=== PATIENT | female | born 1985 | race Caucasian/White ===

== ENCOUNTER → 2018-04-28 | Outpatient (CLI) | payer OTHER ==
[~2018-04-28] MED LIST: ALBU90OI61; Cyclobenzaprine5 MG PO; Flovent 110 MCG12 GM INH; KETO10 PO; PRAZ1 PO; Prednisone20 MG PO; TRAZ50 PO
[2018-04-28 18:03] LABS: BASOPHILS ABSOLUTE AUTO 0.06 K/mm3 (0.00-0.23); BASOPHILS PERCENT AUTO 1 % (0-2); EOSINOPHILS ABSOLUTE AUTO 0.57 K/mm3 (0.00-0.68); EOSINOPHILS PERCENT AUTO 11 % (0-6); Hematocrit 43.6 % (33.0-51.0); Hemoglobin 13.7 g/dL (11.5-16.0); IMMATURE GRAN PERCENT AUTO 0 % (0-1); LYMPHOCYTES ABSOLUTE AUTO 1.49 K/mm3 (0.84-5.20); LYMPHOCYTES PERCENT AUTO 30 % (21-46); MONOCYTES ABSOLUTE AUTO 0.38 K/mm3 (0.16-1.47); MONOCYTES PERCENT AUTO 8 % (4-13); Mean Corpuscular HGB 28.1 pg (26.0-34.0); Mean Corpuscular HGB Conc 31.4 g/dL (31.5-36.5); Mean Corpuscular Volume 89 fL (80-100); Mean Platelet Volume 10.5 fL (9.1-12.4); NEUTROPHILS ABSOLUTE AUTO 2.52 K/mm3 (1.96-9.15); NEUTROPHILS PERCENT AUTO 50 % (41-73); Platelet Count 209 K/mm3 (150-400); RDW Standard Deviation 38.9 fL (35.1-46.3); Red Blood Cell Count 4.88 M/mm3 (3.80-5.20); White Blood Cell Count 5.02 K/mm3 (4.00-11.30)
[2018-04-28 18:21] LABS: Alanine Aminotransfer (ALT/SGP 20 U/L (12-78); Albumin, Blood 3.8 g/dL (3.4-5.0); Albumin/Globulin Ratio 1.1 (0.8-1.8); Alk Phos 45 U/L (50-136); Anion Gap 6 mmol/L (6-16); Aspartate Aminotrans (AST/SGOT 13 U/L (12-37); Bilirubin, Total 0.4 mg/dL (0.1-1.0); Blood Urea Nitrogen 11 mg/dL (8-24); Bun/Creatinine Ratio 14.5 (12.0-20.0); CO2, Blood 25 mmol/L (21-32); Calcium, Blood 8.5 mg/dL (8.5-10.1); Chloride, Blood 109 mmol/L (98-108); Creatinine, Blood 0.76 mg/dL (0.40-1.00); Globulin, Blood 3.4 g/dL (2.2-4.0); Glomerular Filtration Rate >60 (60-); Glucose, Blood 94 mg/dL (70-99); Sodium, Blood 140 mmol/L (136-145); Total Protein, Blood 7.2 g/dL (6.4-8.2)
== END ==
LOC: LAB SHORT 15:47 → LAB 15:47
PROVIDERS: Family Medicine
DX: R53.83 Other fatigue (principal)
CPT/HCPCS: 36415; 80053; 82607; 82746; 84443; 85025

== ENCOUNTER → 2018-05-02 | Outpatient (CLI) | payer OTHER | LOC: LAB 14:18 → LAB SHORT 14:18 | DX: R19.7 Diarrhea, unspecified (principal) | CPT/HCPCS: 87177; 87209 ==

== ENCOUNTER 2018-06-04 13:53 | Emergency (ER) | payer OTHER ==
[~2018-06-04] VITALS: Ht 167.6 cm; Wt 63.5 kg
[2018-06-04 16:29] LABS: BASOPHILS ABSOLUTE AUTO 0.09 K/mm3 (0.00-0.23); BASOPHILS PERCENT AUTO 1 % (0-2); EOSINOPHILS ABSOLUTE AUTO 1.37 K/mm3 (0.00-0.68); EOSINOPHILS PERCENT AUTO 14 % (0-6); Hematocrit 48.4 % (33.0-51.0); Hemoglobin 15.4 g/dL (11.5-16.0); IMMATURE GRAN ABSOLUTE AUTO 0.03 K/mm3 (0.00-0.10); IMMATURE GRAN PERCENT AUTO 0 % (0-1); LYMPHOCYTES ABSOLUTE AUTO 1.86 K/mm3 (0.84-5.20); LYMPHOCYTES PERCENT AUTO 19 % (21-46); MONOCYTES ABSOLUTE AUTO 0.65 K/mm3 (0.16-1.47); MONOCYTES PERCENT AUTO 7 % (4-13); Mean Corpuscular HGB 28.7 pg (26.0-34.0); Mean Corpuscular HGB Conc 31.8 g/dL (31.5-36.5); Mean Platelet Volume 9.7 fL (9.1-12.4); NEUTROPHILS ABSOLUTE AUTO 6.04 K/mm3 (1.96-9.15); NEUTROPHILS PERCENT AUTO 60 % (41-73); Platelet Count 247 K/mm3 (150-400); RDW Coefficient Variation 12.7 % (11.7-14.2); RDW Standard Deviation 41.8 fL (35.1-46.3); Red Blood Cell Count 5.37 M/mm3 (3.80-5.20); White Blood Cell Count 10.04 K/mm3 (4.00-11.30)
[2018-06-04 16:32] LABS: Mean Corpuscular Volume 90 fL (80-100)
[2018-06-04 16:41] LABS: Alanine Aminotransfer (ALT/SGP 26 U/L (12-78); Albumin, Blood 4.1 g/dL (3.4-5.0); Albumin/Globulin Ratio 1.2 (0.8-1.8); Alk Phos 50 U/L (50-136); Anion Gap 6 mmol/L (6-16); Aspartate Aminotrans (AST/SGOT 18 U/L (12-37); Bilirubin, Total 0.5 mg/dL (0.1-1.0); Blood Urea Nitrogen 8 mg/dL (8-24); Bun/Creatinine Ratio 11.4 (12.0-20.0); CO2, Blood 25 mmol/L (21-32); Calcium, Blood 8.7 mg/dL (8.5-10.1); Chloride, Blood 110 mmol/L (98-108); Globulin, Blood 3.5 g/dL (2.2-4.0); Glomerular Filtration Rate >60 (60-); Glucose, Blood 80 mg/dL (70-99); Potassium, Blood 4.2 mmol/L (3.5-5.5); Sodium, Blood 141 mmol/L (136-145); Total Protein, Blood 7.6 g/dL (6.4-8.2)
[2018-06-04] MEDS ORDERED: Flovent Disku100 MCG INH (18:50)
== END 2018-06-04 19:09 | disposition home or self-care (01) ==
LOC: ER 13:53
PROVIDERS: Physician Assistant
DX: J45.901 Unspecified asthma with (acute) exacerbation (principal); F32.9 Major depressive disorder, single episode, unspecified; Z79.899 Other long term (current) drug therapy; Z88.0 Allergy status to penicillin; Z88.2 Allergy status to sulfonamides
CPT/HCPCS: 36415; 71046; 80053; 85025; 94640; 94644; 96365; 96375; 99284-25; J2930; J3475; J7030

== ENCOUNTER 2018-08-26 18:18 | Inpatient (IN) | payer OTHER ==
[~2018-08-26] VITALS: Ht 167.6 cm; Wt 62.6 kg
[~2018-08-26 18:18] MED LIST changes: +Flovent Disku100 MCG INH
[2018-08-26 20:20] LABS: Base Excess Venous 0.9 mmol/L; PCO2 Venous 40.7 mmHg (38-42); PO2 Venous 75.6 mmHg (38-42); pH Blood Venous 7.41 (7.34-7.37)
[2018-08-26 20:32] LABS: Anion Gap 7 mmol/L (6-16); Blood Urea Nitrogen 10 mg/dL (8-24); CO2, Blood 26 mmol/L (21-32); Calcium, Blood 8.8 mg/dL (8.5-10.1); Chloride, Blood 108 mmol/L (98-108); Creatinine, Blood 0.77 mg/dL (0.40-1.00); Glomerular Filtration Rate >60 (60-); Glucose, Blood 74 mg/dL (70-99); Potassium, Blood 3.6 mmol/L (3.5-5.5); Sodium, Blood 141 mmol/L (136-145)
[2018-08-27] MEDS ORDERED: HYDHCL25 PO (00:31)
[2018-08-27 05:22] LABS: Adenovirus Not Detected (NOT DETECT); Bordetella pertussis Not Detected (NOT DETECT); Chlamydophila pneumoniae Not Detected (NOT DETECT); Coronavirus 229E Not Detected (NOT DETECT); Coronavirus HKU1 Not Detected (NOT DETECT); Coronavirus NL63 Not Detected (NOT DETECT); Coronavirus OC43 Not Detected (NOT DETECT); Human Metapneumovirus Not Detected (NOT DETECT); Human Rhinovirus/Enterovirus Not Detected (NOT DETECT); Influenza A Not Detected (NOT DETECT); Influenza A/2009-H1 Not Detected (NOT DETECT); Influenza A/H1 Not Detected (NOT DETECT); Influenza A/H3 Not Detected (NOT DETECT); Influenza B Not Detected (NOT DETECT); Mycoplasma pneumoniae Not Detected (NOT DETECT); Parainfluenza Virus 1 Not Detected (NOT DETECT); Parainfluenza Virus 2 Not Detected (NOT DETECT); Parainfluenza Virus 3 Not Detected (NOT DETECT); Parainfluenza Virus 4 Not Detected (NOT DETECT); Respiratory Syncytial Virus Not Detected (NOT DETECT)
[2018-08-27 08:12] LABS: Mean Corpuscular HGB 28.6 pg (26.0-34.0); Mean Corpuscular HGB Conc 32.6 g/dL (31.5-36.5); Mean Corpuscular Volume 88 fL (80-100); Mean Platelet Volume 10.3 fL (9.1-12.4); Platelet Count 213 K/mm3 (150-400); RDW Coefficient Variation 12.2 % (11.7-14.2); RDW Standard Deviation 39.4 fL (35.1-46.3); White Blood Cell Count 4.53 K/mm3 (4.00-11.30)
[2018-08-27 08:25] LABS: Alanine Aminotransfer (ALT/SGP 19 U/L (12-78); Albumin, Blood 3.7 g/dL (3.4-5.0); Albumin/Globulin Ratio 1.1 (0.8-1.8); Alk Phos 48 U/L (50-136); Anion Gap 8 mmol/L (6-16); Aspartate Aminotrans (AST/SGOT 11 U/L (12-37); Bilirubin, Total 0.4 mg/dL (0.1-1.0); Blood Urea Nitrogen 12 mg/dL (8-24); Bun/Creatinine Ratio 18.3 (12.0-20.0); CO2, Blood 21 mmol/L (21-32); Calcium, Blood 8.6 mg/dL (8.5-10.1); Chloride, Blood 112 mmol/L (98-108); Creatinine, Blood 0.66 mg/dL (0.40-1.00); Globulin, Blood 3.4 g/dL (2.2-4.0); Glomerular Filtration Rate >60 (60-); Glucose, Blood 131 mg/dL (70-99); Potassium, Blood 4.3 mmol/L (3.5-5.5); Sodium, Blood 141 mmol/L (136-145); Total Protein, Blood 7.1 g/dL (6.4-8.2)
[2018-08-27 10:33] LABS: Source, Urine Clean Catch
[2018-08-27 10:36] LABS: Bilirubin, Urine Neg (Neg); Blood, Urine Neg (Neg); Glucose Qualitative, Urine Neg (Neg); Ketones, Urine 3+ (Neg); Leukocyte Esterase, Urine Neg (Neg); Nitrite, Urine Neg (Neg); Protein, Urine Neg (Neg); Specific Gravity, Urine 1.015 (1.003-1.022); Urobilinogen, Urine NORM (Normal); pH, Urine 6.5 (5.0-8.0)
[2018-08-27 10:37] LABS: Appearance, Urine Clear (Clear); Color, Urine Yellow (P-Yellow)
--- NOTE | 2018-08-27 18:05 | NUR ---
SHIFT SUMMARY PT A&OX4. ANXIOUS AT TIMES. PT RESTING IN BED DURING SHIFT. PT UP IN ROOM IND. DENIES SOB, >95% ON RA, LS EXP/INS WHEEZING T/O. PT RECEIVING BREATHING TREATMENTS PER RT AND IV STEROIDS. PT REPORTS MUSCLE TIGHTNESS, MEDICATED X1 WITH FLEXERIL. PT DENIES N/V. ELEVATED HR NOTED, OTHER VSS. NO OTHER ACUTE CHANGES NOTED DURING SHIFT. WILL CONTINUE TO MONITOR UNTIL REPORT GIVEN TO ONCOMING RN.
[2018-08-28 04:50] LABS: BASOPHILS ABSOLUTE AUTO 0.01 K/mm3 (0.00-0.23); BASOPHILS PERCENT AUTO 0 % (0-2); EOSINOPHILS PERCENT AUTO 0 % (0-6); Hematocrit 41.3 % (33.0-51.0); Hemoglobin 13.2 g/dL (11.5-16.0); IMMATURE GRAN ABSOLUTE AUTO 0.05 K/mm3 (0.00-0.10); IMMATURE GRAN PERCENT AUTO 0 % (0-1); LYMPHOCYTES PERCENT AUTO 5 % (21-46); MONOCYTES ABSOLUTE AUTO 0.24 K/mm3 (0.16-1.47); MONOCYTES PERCENT AUTO 2 % (4-13); Mean Corpuscular HGB 28.9 pg (26.0-34.0); Mean Corpuscular Volume 90 fL (80-100); Mean Platelet Volume 10.8 fL (9.1-12.4); NEUTROPHILS ABSOLUTE AUTO 10.76 K/mm3 (1.96-9.15); NEUTROPHILS PERCENT AUTO 92 % (41-73); Platelet Count 214 K/mm3 (150-400); RDW Coefficient Variation 12.4 % (11.7-14.2); RDW Standard Deviation 40.6 fL (35.1-46.3); Red Blood Cell Count 4.57 M/mm3 (3.80-5.20); White Blood Cell Count 11.66 K/mm3 (4.00-11.30)
[2018-08-28 05:10] LABS: Albumin, Blood 3.6 g/dL (3.4-5.0); Anion Gap 6 mmol/L (6-16); Blood Urea Nitrogen 11 mg/dL (8-24); Bun/Creatinine Ratio 17.4 (12.0-20.0); CO2, Blood 21 mmol/L (21-32); Calcium, Blood 8.2 mg/dL (8.5-10.1); Chloride, Blood 113 mmol/L (98-108); Creatinine, Blood 0.63 mg/dL (0.40-1.00); Glomerular Filtration Rate >60 (60-); Glucose, Blood 148 mg/dL (70-99); Magnesium, Blood 2.1 mg/dL (1.6-2.4); Phosphorus, Blood 2.8 mg/dL (2.5-4.9); Sodium, Blood 140 mmol/L (136-145)
--- NOTE | 2018-08-28 07:28 | NUR ---
PT FOUND CRYING IN ROOM, STATES SHE STARTED TO HAVE AN ASTHMA ATTACK AFTER RAISING THE HEAD OF HER BED CAUSES NECK AND MID TO UPPER BACK PAIN (CHRONIC) AND MID/LOW STERNAL PAIN, PT STATES 10/10 PINCHING FEELING. VS TAKEN, ELEVATED HR AND RESP, LS INS/EXP WHEEZING T/O. ADMINISTERED HYDROXYZINE AND FLEXERIL PER EMAR. NOTIFIED DR WELLS, NEW ORDER TO GIVEN ALBUTEROL TX NOW, NOTIFED RT AND TO DC STEROIDS. WILL CONTINUE TO MONITOR
--- NOTE | 2018-08-28 17:40 | NUR ---
SHIFT SUMMARY PT A&OX4. ANXIOUS AT TIMES, COOPERATIVE WITH CARE. PT RESTING IN BED DURING SHIFT. IND IN ROOM AND WALKING IN HALLS. PT REPORTS NECK, MID TO UPPER BACK PAIN AND MID TO LOWER CHEST PAIN, DR WELLS NOTIFIED, MEDICATED PER EMAR. PT REPORTS ASTHMA ATTACK THIS AM, PT STATES IT STARTED ONCE SHE RAISED THE HEAD OF HER BED CAUSING NECK, BACK AND LOWER CHEST PAIN. PT >92% ON RA, RECEIVING BREATHING TX PER RT, IV STEROIDS AND COUGH MEDICATIONS. PT RECEIVING IV ANTIBIOTICS. VSS. NO OTHER ACUTE CHANGES NOTED DURING SHIFT. WILL CONTINUE TO MONITOR UNTIL REPORT GIVEN TO ONCOMING RN.
[2018-08-29] MEDS ORDERED: Acetaminophen325 M1 PO (12:41)
[2018-08-29] MEDS ORDERED: Cyclobenzaprine5 MG PO (12:42)
[2018-08-29] MEDS ORDERED: ROBITUSSIN COU237 M1 PO (12:42)
[2018-08-29] MEDS ORDERED: MOME220I INH (12:43)
[2018-08-29] MEDS ORDERED: MONT10T PO (12:44)
[2018-08-29] MEDS ORDERED: AZIT250 PO (12:45)
[2018-08-29] MEDS ORDERED: VENL75ER PO (12:46)
[2018-08-29] MEDS ORDERED: VALACYCLOVIR500 MG PO (12:46)
[2018-08-29] MEDS ORDERED: ALBU90OI61 INH (13:17)
[2018-08-29] MEDS ORDERED: TRAZ50 PO (13:22)
--- NOTE | 2018-08-29 13:44 | NUR ---
PATIENT DISCHARGED AT 13:44.
== END 2018-08-29 13:44 | disposition home or self-care (01) | DRG 203 ==
LOC: ER 18:18 → MEDS 18:19
PROVIDERS: Emergency Medicine; Internal Medicine Gastroenterology; ADMIT Internal Medicine
DX: J45.901 Unspecified asthma with (acute) exacerbation (principal); F41.1 Generalized anxiety disorder; E86.0 Dehydration; G89.29 Other chronic pain; M54.9 Dorsalgia, unspecified; M54.2 Cervicalgia; J22 Unspecified acute lower respiratory infection; R20.2 Paresthesia of skin; F43.10 Post-traumatic stress disorder, unspecified; Z88.0 Allergy status to penicillin; Z88.2 Allergy status to sulfonamides; Z79.51 Long term (current) use of inhaled steroids; Z79.899 Other long term (current) drug therapy
CPT/HCPCS: 36415; 71046; 80048; 80053; 80069; 81003; 82803; 83735; 83880; 84145; 84703; 85025; 85027; 87070; 87205; 87486; 87581; 87633; 87798; 94640; 94644; 94760; 99285-25; A9270; G0378; J0456; J1650; J1885; J2060; J2930; J7030; J7050

== ENCOUNTER → 2019-05-18 | Outpatient (CLI) | payer OTHER ==
[~2019-05-18] MED LIST changes: +ALBU90OI61 INH; +AZIT250 PO; +Acetaminophen325 M1 PO; +HYDHCL25 PO; +MOME220I INH; +MONT10T PO; +ROBITUSSIN COU237 M1 PO; +VALACYCLOVIR500 MG PO; +VENL75ER PO
[2019-05-21 15:09] LABS: HPV 16 Negative (Negative); HPV 18 Negative (Negative); HPV OTHER HR TYPES Negative (Negative)
== END | disposition home or self-care (01) ==
LOC: LAB SHORT 11:00 → LAB 11:00
PROVIDERS: Obstetrics & Gynecology
DX: Z01.419 Encounter for gynecological examination (general) (routine) without abnormal findings (principal)
CPT/HCPCS: 87624; G0123

== ENCOUNTER → 2019-11-22 | Outpatient (CLI) | payer OTHER ==
[2019-11-23 11:42] LABS: Candida species (DNA Probe) Negative (NEGATIVE); G. vaginalis (DNA Probe) Positive (NEGATIVE); T. vaginalis (DNA Probe) Negative (NEGATIVE)
== END ==
LOC: LAB 18:19 → LAB SHORT 18:19
PROVIDERS: Nurse Practitioner Family
DX: N89.8 Other specified noninflammatory disorders of vagina (principal)
CPT/HCPCS: 87480; 87510; 87660

== ENCOUNTER → 2020-03-19 | Outpatient (CLI) | payer OTHER ==
[~2020-03-19] MED LIST changes: +CYMBALTA30 M2 PO; +ONDA4ODT MM; +ONDA4ODT SL
== END ==
LOC: LAB SHORT 10:15
DX: J02.9 Acute pharyngitis, unspecified (principal)
CPT/HCPCS: 87081

== ENCOUNTER 2020-07-27 16:03 | Emergency (ER) | payer OTHER ==
[~2020-07-27] VITALS: Ht 167.6 cm; Wt 65.8 kg
[~2020-07-27 16:03] MED LIST changes: -CYMBALTA30 M2 PO; -ONDA4ODT MM; -ONDA4ODT SL
[2020-07-27] MEDS ORDERED: ONDA4ODT SL (16:31)
[2020-07-27] MEDS ORDERED: CYMBALTA30 M2 PO (16:32)
[2020-07-27 17:11] LABS: BASOPHILS ABSOLUTE AUTO 0.05 K/mm3 (0.00-0.23); BASOPHILS PERCENT AUTO 1 % (0-2); EOSINOPHILS ABSOLUTE AUTO 0.31 K/mm3 (0.00-0.68); EOSINOPHILS PERCENT AUTO 4 % (0-6); Hematocrit 41.2 % (33.0-51.0); Hemoglobin 13.9 g/dL (11.5-16.0); IMMATURE GRAN ABSOLUTE AUTO 0.02 K/mm3 (0.00-0.10); IMMATURE GRAN PERCENT AUTO 0 % (0-1); LYMPHOCYTES ABSOLUTE AUTO 1.65 K/mm3 (0.84-5.20); LYMPHOCYTES PERCENT AUTO 20 % (21-46); MONOCYTES ABSOLUTE AUTO 0.58 K/mm3 (0.16-1.47); MONOCYTES PERCENT AUTO 7 % (4-13); Mean Corpuscular HGB 28.9 pg (26.0-34.0); Mean Corpuscular HGB Conc 33.7 g/dL (31.5-36.5); Mean Corpuscular Volume 86 fL (80-100); Mean Platelet Volume 10.3 fL (9.1-12.4); NEUTROPHILS ABSOLUTE AUTO 5.83 K/mm3 (1.96-9.15); NEUTROPHILS PERCENT AUTO 69 % (41-73); Platelet Count 209 K/mm3 (150-400); RDW Coefficient Variation 12.5 % (11.7-14.2); RDW Standard Deviation 39.1 fL (35.1-46.3); Red Blood Cell Count 4.81 M/mm3 (3.80-5.20); White Blood Cell Count 8.44 K/mm3 (4.00-11.30)
[2020-07-27 17:28] LABS: Alanine Aminotransfer (ALT/SGP 16 U/L (12-78); Albumin, Blood 3.3 g/dL (3.4-5.0); Albumin/Globulin Ratio 0.9 (0.8-1.8); Alk Phos 45 U/L (50-136); Anion Gap 8 mmol/L (6-16); Aspartate Aminotrans (AST/SGOT 13 U/L (12-37); Bilirubin, Total 0.4 mg/dL (0.1-1.0); Blood Urea Nitrogen 7 mg/dL (8-24); Bun/Creatinine Ratio 11.2 (12.0-20.0); CO2, Blood 20 mmol/L (21-32); Calcium, Blood 8.9 mg/dL (8.5-10.1); Chloride, Blood 110 mmol/L (98-108); Creatinine, Blood 0.63 mg/dL (0.40-1.00); Globulin, Blood 3.8 g/dL (2.2-4.0); Glomerular Filtration Rate >60 (60-); Glucose, Blood 79 mg/dL (70-99); Potassium, Blood 3.7 mmol/L (3.5-5.5); Sodium, Blood 138 mmol/L (136-145); Total Protein, Blood 7.1 g/dL (6.4-8.2)
[2020-07-27 17:55] LABS: Source, Urine Clean Catch
[2020-07-27 17:59] LABS: Bilirubin, Urine Neg (Neg); Blood, Urine Neg (Neg); Glucose Qualitative, Urine Neg (Neg); Ketones, Urine 4+ (Neg); Leukocyte Esterase, Urine Neg (Neg); Nitrite, Urine Neg (Neg); Protein, Urine 1+ (Neg); Specific Gravity, Urine 1.025 (1.003-1.022); Urobilinogen, Urine NORM (Normal)
[2020-07-27 18:07] LABS: Appearance, Urine Hazy (Clear); Color, Urine Yellow (P-Yellow)
[2020-07-27 18:08] LABS: Bacteria Mod /hpf; Mucus Light (0-Heavy); Red Blood Cells, Urine 0-2 /hpf (0-2); Squamous Epithelial Cells Few /hpf (Few); White Blood Cells, Urine 0-2 /hpf (0-5)
[2020-07-27 18:09] LABS: Calcium Oxalate Crystals Rare /hpf
[2020-07-27] MEDS ORDERED: ONDA4ODT MM (19:53)
== END 2020-07-27 19:55 | disposition home or self-care (01) ==
LOC: ER 16:03
PROVIDERS: Emergency Medicine
DX: O99.341 Other mental disorders complicating pregnancy, first trimester (principal); F41.9 Anxiety disorder, unspecified; O99.891 Other specified diseases and conditions complicating pregnancy; R10.9 Unspecified abdominal pain; Z88.0 Allergy status to penicillin; Z88.2 Allergy status to sulfonamides; Z3A.13 13 weeks gestation of pregnancy
CPT/HCPCS: 76801; 80053; 81001; 85025; 87086; 99284-25; A9270; J7030

== ENCOUNTER → 2020-11-06 | Outpatient (CLI) | payer OTHER ==
[~2020-11-06] MED LIST changes: +CYMBALTA30 M2 PO; +ONDA4ODT MM; +ONDA4ODT SL
[2020-11-06 19:43] LABS: BASOPHILS ABSOLUTE AUTO 0.04 K/mm3 (0.00-0.23); BASOPHILS PERCENT AUTO 0 % (0-2); EOSINOPHILS ABSOLUTE AUTO 0.38 K/mm3 (0.00-0.68); EOSINOPHILS PERCENT AUTO 4 % (0-6); Hematocrit 37.2 % (33.0-51.0); IMMATURE GRAN ABSOLUTE AUTO 0.08 K/mm3 (0.00-0.10); IMMATURE GRAN PERCENT AUTO 1 % (0-1); LYMPHOCYTES ABSOLUTE AUTO 1.28 K/mm3 (0.84-5.20); LYMPHOCYTES PERCENT AUTO 14 % (21-46); MONOCYTES ABSOLUTE AUTO 0.65 K/mm3 (0.16-1.47); MONOCYTES PERCENT AUTO 7 % (4-13); Mean Corpuscular HGB 29.3 pg (26.0-34.0); Mean Corpuscular HGB Conc 32.3 g/dL (31.5-36.5); Mean Corpuscular Volume 91 fL (80-100); Mean Platelet Volume 11.1 fL (9.1-12.4); NEUTROPHILS ABSOLUTE AUTO 6.92 K/mm3 (1.96-9.15); NEUTROPHILS PERCENT AUTO 74 % (41-73); Platelet Count 216 K/mm3 (150-400); RDW Standard Deviation 43.1 fL (35.1-46.3); White Blood Cell Count 9.35 K/mm3 (4.00-11.30)
== END | disposition home or self-care (01) ==
LOC: LAB 06:55 → LAB SHORT 06:55
PROVIDERS: Advanced Practice Midwife
DX: O09.892 Supervision of other high risk pregnancies, second trimester (principal); O09.522 Supervision of elderly multigravida, second trimester
CPT/HCPCS: 82950; 85025

== ENCOUNTER → 2020-12-18 | Outpatient (CLI) | payer OTHER | END | disposition home or self-care (01) | LOC: LAB SHORT 15:00 → LAB 15:00 | DX: O09.93 Supervision of high risk pregnancy, unspecified, third trimester (principal) | CPT/HCPCS: 87081; 87150 ==

== ENCOUNTER 2021-01-16 05:33 | Inpatient (IN) | payer OTHER ==
[~2021-01-16] VITALS: Ht 167.6 cm; Wt 76.4 kg
[2021-01-16] MEDS ORDERED: DULERA 100 MCG/13 GM (05:50)
[2021-01-16 06:39] LABS: BASOPHILS ABSOLUTE AUTO 0.06 K/mm3 (0.00-0.23); BASOPHILS PERCENT AUTO 1 % (0-2); EOSINOPHILS ABSOLUTE AUTO 0.31 K/mm3 (0.00-0.68); EOSINOPHILS PERCENT AUTO 3 % (0-6); Hematocrit 36.3 % (33.0-51.0); IMMATURE GRAN ABSOLUTE AUTO 0.06 K/mm3 (0.00-0.10); IMMATURE GRAN PERCENT AUTO 1 % (0-1); LYMPHOCYTES ABSOLUTE AUTO 1.71 K/mm3 (0.84-5.20); LYMPHOCYTES PERCENT AUTO 18 % (21-46); MONOCYTES ABSOLUTE AUTO 0.92 K/mm3 (0.16-1.47); MONOCYTES PERCENT AUTO 9 % (4-13); Mean Corpuscular HGB 29.1 pg (26.0-34.0); Mean Corpuscular HGB Conc 33.1 g/dL (31.5-36.5); Mean Corpuscular Volume 88 fL (80-100); Mean Platelet Volume 12.9 fL (9.1-12.4); NEUTROPHILS ABSOLUTE AUTO 6.73 K/mm3 (1.96-9.15); NEUTROPHILS PERCENT AUTO 69 % (41-73); Platelet Count 143 K/mm3 (150-400); RDW Coefficient Variation 13.2 % (11.7-14.2); RDW Standard Deviation 42.8 fL (35.1-46.3); Red Blood Cell Count 4.12 M/mm3 (3.80-5.20); White Blood Cell Count 9.79 K/mm3 (4.00-11.30)
[2021-01-16 07:02] LABS: SARS-Cov-2 (COVID-19) PCR, MMC NEGATIVE (NEGATIVE)
--- NOTE | 2021-01-16 15:11 | NUR ---
ASSUMED CARE FROM KAYA FRAGA RN
[2021-01-17 06:02] LABS: Hemoglobin 10.8 g/dL (11.5-16.0); Mean Corpuscular HGB 28.8 pg (26.0-34.0); Mean Corpuscular HGB Conc 32.7 g/dL (31.5-36.5); Mean Corpuscular Volume 88 fL (80-100); Mean Platelet Volume 12.7 fL (9.1-12.4); Platelet Count 125 K/mm3 (150-400); RDW Coefficient Variation 13.2 % (11.7-14.2); RDW Standard Deviation 43.1 fL (35.1-46.3); Red Blood Cell Count 3.75 M/mm3 (3.80-5.20); White Blood Cell Count 8.75 K/mm3 (4.00-11.30)
--- NOTE | 2021-01-17 15:06 | NUR ---
PT DISCHARGED FROM [facility] TO HOME. DISCHARGE INSTRUCTIONS GIVEN. NO QUESTIONS OR CONCERNS AT THIS TIME. PT ADVISED THAT BABY NEEDS TO F/U TOMORROW 01-18-21 @1000 FOR A TSB AND ALSO ON 01-19-21 @1030 FOR A NORMAL FOLLOW UP PER DR. GONZÁLES. HE WANTED BABY TO F/U TWO DAYS IN A ROW. MOM'S F/U APPOINTMENT IS 01-20-21 @ 6350. MOTHER GIVEN ALL DATES WRITTEN DOWN. IV REMOVED. PRESCRIPTION HANDED TO PT.
== END 2021-01-17 15:20 | disposition home or self-care (01) | DRG 806 ==
LOC: OBS 05:33 → BC 05:37 → OBS 05:57 → BC 06:00
PROVIDERS: ADMIT Advanced Practice Midwife
PROC: 10E0XZZ Delivery of Products of Conception, External Approach (ICD-10-PCS; principal; 2021-01-16)
PROC: 0HQ9XZZ Repair Perineum Skin, External Approach (ICD-10-PCS; 2021-01-16)
PROC: 3E0R3BZ Introduction of Anesthetic Agent into Spinal Canal, Percutaneous Approach (ICD-10-PCS; 2021-01-16)
PROC: 00HU33Z Insertion of Infusion Device into Spinal Canal, Percutaneous Approach (ICD-10-PCS; 2021-01-16)
PROC: 3E0234Z Introduction of Serum, Toxoid and Vaccine into Muscle, Percutaneous Approach (ICD-10-PCS; 2021-01-16)
DX: O99.52 Diseases of the respiratory system complicating childbirth (principal); O98.32 Other infections with a predominantly sexual mode of transmission complicating childbirth; Z37.0 Single live birth; O26.893 Other specified pregnancy related conditions, third trimester; Z3A.39 39 weeks gestation of pregnancy; O70.0 First degree perineal laceration during delivery; O77.0 Labor and delivery complicated by meconium in amniotic fluid; J45.909 Unspecified asthma, uncomplicated; A60.00 Herpesviral infection of urogenital system, unspecified; Z67.41 Type O blood, Rh negative; O99.344 Other mental disorders complicating childbirth; F43.10 Post-traumatic stress disorder, unspecified; F41.8 Other specified anxiety disorders; Z88.0 Allergy status to penicillin; Z88.2 Allergy status to sulfonamides; Z28.21 Immunization not carried out because of patient refusal; Z88.8 Allergy status to other drugs, medicaments and biological substances; Z79.899 Other long term (current) drug therapy; Z87.891 Personal history of nicotine dependence
CPT/HCPCS: 36415; 51702; 85025; 85027; 85460; 86850; 86870; 86900; 86901; 96372; A9270; J1885; J2001; J2405; J2590; J2791; J3010; J7120; U0004

== ENCOUNTER 2021-06-05 15:15 | Emergency (ER) | payer OTHER ==
[~2021-06-05] VITALS: Ht 167.6 cm; Wt 68.0 kg
[~2021-06-05 15:15] MED LIST changes: +ALBU90OI INH; +CEPH500 PO; +Cymbalta20 MG PO; +DULERA 100 MCG/13 GM; +VALA500 PO
[2021-06-05] MEDS ORDERED: SYMBICORT 160-4.6 GM (15:33)
[2021-06-05 16:02] LABS: BASOPHILS ABSOLUTE AUTO 0.05 K/mm3 (0.00-0.23); BASOPHILS PERCENT AUTO 1 % (0-2); EOSINOPHILS ABSOLUTE AUTO 0.27 K/mm3 (0.00-0.68); EOSINOPHILS PERCENT AUTO 3 % (0-6); Hematocrit 47.2 % (33.0-51.0); Hemoglobin 15.4 g/dL (11.5-16.0); IMMATURE GRAN ABSOLUTE AUTO 0.03 K/mm3 (0.00-0.10); IMMATURE GRAN PERCENT AUTO 0 % (0-1); LYMPHOCYTES ABSOLUTE AUTO 1.22 K/mm3 (0.84-5.20); LYMPHOCYTES PERCENT AUTO 16 % (21-46); MONOCYTES ABSOLUTE AUTO 0.48 K/mm3 (0.16-1.47); MONOCYTES PERCENT AUTO 6 % (4-13); Mean Corpuscular HGB 28.9 pg (26.0-34.0); Mean Corpuscular HGB Conc 32.6 g/dL (31.5-36.5); Mean Corpuscular Volume 89 fL (80-100); Mean Platelet Volume 10.3 fL (9.1-12.4); NEUTROPHILS ABSOLUTE AUTO 5.83 K/mm3 (1.96-9.15); NEUTROPHILS PERCENT AUTO 74 % (41-73); Platelet Count 232 K/mm3 (150-400); RDW Standard Deviation 39.5 fL (35.1-46.3); Red Blood Cell Count 5.32 M/mm3 (3.80-5.20); White Blood Cell Count 7.88 K/mm3 (4.00-11.30)
[2021-06-05 16:16] LABS: C-REACTIVE PROTEIN, EXT RANGE <0.290 mg/dL (0.000-0.300); Magnesium, Blood 2.5 mg/dL (1.6-2.4)
[2021-06-05 16:18] LABS: Anion Gap 5 mmol/L (6-16); Blood Urea Nitrogen 15 mg/dL (8-24); Bun/Creatinine Ratio 17.8 (12.0-20.0); CO2, Blood 23 mmol/L (21-32); Calcium, Blood 9.3 mg/dL (8.5-10.1); Chloride, Blood 110 mmol/L (98-108); Creatinine, Blood 0.84 mg/dL (0.40-1.00); Glomerular Filtration Rate >60 (60-); Glucose, Blood 89 mg/dL (70-99); Potassium, Blood 4.5 mmol/L (3.5-5.5); Sodium, Blood 138 mmol/L (136-145)
[2021-06-05] MEDS ORDERED: AMOCLA875 PO (18:19)
[2021-06-05] MEDS ORDERED: AFRIN15 M6 (18:19)
[2021-06-05] MEDS ORDERED: BENADRYL25 MG PO (18:19)
[2021-06-05] MEDS ORDERED: METO10 PO (18:19)
== END 2021-06-05 18:54 | disposition home or self-care (01) ==
LOC: ER 15:15
PROVIDERS: Student in an Organized Health Care Education/Training Program
DX: J34.0 Abscess, furuncle and carbuncle of nose (principal); J32.9 Chronic sinusitis, unspecified; G43.909 Migraine, unspecified, not intractable, without status migrainosus; Z88.0 Allergy status to penicillin; Z88.2 Allergy status to sulfonamides; Z79.899 Other long term (current) drug therapy
CPT/HCPCS: 70450; 70487; 80048; 83735; 85025; 85651; 86140; 96365; 96375; 99284-25; J0295; J1200; J1790; J1885; J2765; J7030; J7050; Q9967

== ENCOUNTER → 2021-11-19 | Outpatient (CLI) | payer OTHER ==
[~2021-11-19] MED LIST changes: +AFRIN15 M6; +AMOCLA875 PO; +BENADRYL25 MG PO; +METO10 PO; +SYMBICORT 160-4.6 GM
== END | disposition home or self-care (01) ==
LOC: LAB 12:00 → LAB SHORT 12:00
DX: J34.89 Other specified disorders of nose and nasal sinuses (principal)
CPT/HCPCS: 87070; 87075; 87077; 87186

== ENCOUNTER → 2022-02-16 | Outpatient (CLI) | payer OTHER ==
[2022-02-16 16:35] LABS: Source, Urine Clean Catch
[2022-02-16 20:42] LABS: Appearance, Urine Clear (Clear); Bilirubin, Urine Neg (Neg); Blood, Urine 2+ (Neg); Color, Urine Yellow (P-Yellow); Glucose Qualitative, Urine Neg (Neg); Ketones, Urine Neg (Neg); Leukocyte Esterase, Urine Neg (Neg); Nitrite, Urine Neg (Neg); Protein, Urine Neg (Neg); Specific Gravity, Urine 1.015 (1.003-1.022); Urobilinogen, Urine NORM (Normal)
[2022-02-16 21:25] LABS: Bacteria Mod /hpf; Red Blood Cells, Urine 0-2 /hpf (0-2); Squamous Epithelial Cells Many /hpf (Few); White Blood Cells, Urine 0-2 /hpf (0-5)
[2022-02-16 21:26] LABS: Mucus Light (0-Heavy); Renal Epithelial Rare /hpf (0-Rare)
[2022-02-17 11:24] LABS: Candida species (DNA Probe) Negative (NEGATIVE); G. vaginalis (DNA Probe) Negative (NEGATIVE); T. vaginalis (DNA Probe) Negative (NEGATIVE)
== END | disposition home or self-care (01) ==
LOC: LAB 16:30 → LAB SHORT 16:30
PROVIDERS: Advanced Practice Midwife
DX: N76.0 Acute vaginitis (principal); R30.0 Dysuria
CPT/HCPCS: 81001; 87480; 87510; 87660

== ENCOUNTER → 2022-04-26 | Outpatient (CLI) | payer OTHER ==
[2022-04-29 14:09] LABS: HPV 16 Negative (Negative); HPV 18 Negative (Negative); HPV OTHER HR TYPES Negative (Negative)
== END | disposition home or self-care (01) ==
LOC: LAB SHORT 17:18 → LAB 17:18
PROVIDERS: Advanced Practice Midwife
DX: Z01.419 Encounter for gynecological examination (general) (routine) without abnormal findings (principal)
CPT/HCPCS: 87624; G0145

== ENCOUNTER 2023-03-06 15:34 | Emergency (ER) | payer OTHER ==
[~2023-03-06] VITALS: Ht 167.6 cm; Wt 59.0 kg
[2023-03-06 16:37] LABS: BASOPHILS ABSOLUTE AUTO 0.04 K/mm3 (0.00-0.23); BASOPHILS PERCENT AUTO 1 % (0-2); EOSINOPHILS ABSOLUTE AUTO 0.23 K/mm3 (0.00-0.68); EOSINOPHILS PERCENT AUTO 4 % (0-6); Hematocrit 43.2 % (33.0-51.0); Hemoglobin 14.6 g/dL (11.5-16.0); IMMATURE GRAN ABSOLUTE AUTO 0.02 K/mm3 (0.00-0.10); IMMATURE GRAN PERCENT AUTO 0 % (0-1); LYMPHOCYTES ABSOLUTE AUTO 1.52 K/mm3 (0.84-5.20); LYMPHOCYTES PERCENT AUTO 29 % (21-46); MONOCYTES PERCENT AUTO 8 % (4-13); Mean Corpuscular HGB 29.9 pg (26.0-34.0); Mean Corpuscular HGB Conc 33.8 g/dL (31.5-36.5); Mean Corpuscular Volume 89 fL (80-100); Mean Platelet Volume 10.6 fL (9.1-12.4); NEUTROPHILS ABSOLUTE AUTO 3.01 K/mm3 (1.96-9.15); NEUTROPHILS PERCENT AUTO 58 % (41-73); Platelet Count 208 K/mm3 (150-400); RDW Standard Deviation 39.3 fL (35.1-46.3); Red Blood Cell Count 4.88 M/mm3 (3.80-5.20); White Blood Cell Count 5.22 K/mm3 (4.00-11.30)
[2023-03-06 17:01] LABS: Albumin, Blood 3.7 g/dL (3.4-5.0); Albumin/Globulin Ratio 1.1 (0.8-1.8); Bilirubin, Total 0.4 mg/dL (0.1-1.0); Bun/Creatinine Ratio 11.7 (12.0-20.0); Calcium, Blood 8.6 mg/dL (8.5-10.1); Creatinine, Blood 0.68 mg/dL (0.40-1.00); Globulin, Blood 3.5 g/dL (2.2-4.0); Potassium, Blood 4.1 mmol/L (3.5-5.5); Total Protein, Blood 7.2 g/dL (6.4-8.2)
[2023-03-06 17:18] LABS: Source, Urine Clean Catch
[2023-03-06 17:30] LABS: Appearance, Urine Hazy (Clear); Bilirubin, Urine Neg (Neg); Blood, Urine Neg (Neg); Color, Urine Yellow (P-Yellow); Glucose Qualitative, Urine Neg (Neg); Ketones, Urine Neg (Neg); Leukocyte Esterase, Urine 1+ (Neg); Nitrite, Urine Neg (Neg); Protein, Urine 2+ (Neg); Specific Gravity, Urine 1.025 (1.003-1.022); Urobilinogen, Urine 1+ (Normal)
[2023-03-06 17:38] LABS: Mucus Mod (0-Heavy); Squamous Epithelial Cells Rare /hpf (Few); Transitional Epithelial Cells Rare /hpf (0-Rare)
[2023-03-06 17:39] LABS: Amorphous Light (0-Heavy); Bacteria Many /hpf; Calcium Oxalate Crystals Many /hpf; Red Blood Cells, Urine 0-2 /hpf (0-2); White Blood Cells, Urine 0-2 /hpf (0-5)
[2023-03-06 17:59] LABS: Influenza A, PCR NEGATIVE (NEGATIVE); Influenza B, PCR NEGATIVE (NEGATIVE); Resp Syncytial Virus, PCR NEGATIVE (NEGATIVE); SARS-Cov-2 (COVID-19) PCR, MMC NEGATIVE (NEGATIVE)
[2023-03-06 19:16] LABS: Candida species (DNA Probe) Negative (NEGATIVE); G. vaginalis (DNA Probe) Negative (NEGATIVE); T. vaginalis (DNA Probe) Negative (NEGATIVE)
[2023-03-06] MEDS ORDERED: OMEP20ER PO (20:01)
[2023-03-06] MEDS ORDERED: SUCR1 PO (20:01)
[2023-03-06 20:13] VITALS: BP 103/69
== END 2023-03-06 20:13 | disposition home or self-care (01) ==
LOC: ER 15:34
PROVIDERS: Emergency Medicine; Student in an Organized Health Care Education/Training Program
DX: R19.7 Diarrhea, unspecified (principal); R10.13 Epigastric pain; K21.9 Gastro-esophageal reflux disease without esophagitis; Z88.2 Allergy status to sulfonamides; Z88.0 Allergy status to penicillin; Z79.899 Other long term (current) drug therapy; Z20.822 Contact with and (suspected) exposure to COVID-19
CPT/HCPCS: 0241U; 71046; 76705; 80053; 81001; 83690; 84703; 85025; 87086; 87480; 87510; 87660; 93005; 93010; 96374; 96375; 99284-25; A9270; J1885; J2405; J7030

== ENCOUNTER 2023-11-07 11:28 | Emergency (ER) | payer OTHER ==
[~2023-11-07] VITALS: Ht 167.6 cm; Wt 69.0 kg
[~2023-11-07 11:28] MED LIST changes: +OMEP20ER PO; +SUCR1 PO
[2023-11-07 11:59] LABS: BASOPHILS ABSOLUTE AUTO 0.03 K/mm3 (0.00-0.23); BASOPHILS PERCENT AUTO 1 % (0-2); EOSINOPHILS PERCENT AUTO 3 % (0-6); Hematocrit 43.7 % (33.0-51.0); Hemoglobin 14.8 g/dL (11.5-16.0); IMMATURE GRAN ABSOLUTE AUTO 0.01 K/mm3 (0.00-0.10); IMMATURE GRAN PERCENT AUTO 0 % (0-1); LYMPHOCYTES ABSOLUTE AUTO 1.65 K/mm3 (0.84-5.20); LYMPHOCYTES PERCENT AUTO 27 % (21-46); MONOCYTES ABSOLUTE AUTO 0.58 K/mm3 (0.16-1.47); MONOCYTES PERCENT AUTO 10 % (4-13); Mean Corpuscular HGB 28.3 pg (26.0-34.0); Mean Corpuscular HGB Conc 33.9 g/dL (31.5-36.5); Mean Corpuscular Volume 84 fL (80-100); Mean Platelet Volume 9.8 fL (9.1-12.4); NEUTROPHILS ABSOLUTE AUTO 3.66 K/mm3 (1.96-9.15); NEUTROPHILS PERCENT AUTO 60 % (41-73); Platelet Count 230 K/mm3 (150-400); RDW Coefficient Variation 11.9 % (11.7-14.2); RDW Standard Deviation 36.2 fL (35.1-46.3); Red Blood Cell Count 5.23 M/mm3 (3.80-5.20); White Blood Cell Count 6.13 K/mm3 (4.00-11.30)
[2023-11-07 12:19] LABS: Albumin, Blood 3.9 g/dL (3.4-5.0); Albumin/Globulin Ratio 1.1 (0.8-1.8); Bilirubin, Total 0.5 mg/dL (0.1-1.0); Bun/Creatinine Ratio 10.3 (12.0-20.0); Calcium, Blood 8.8 mg/dL (8.5-10.1); Creatinine, Blood 0.78 mg/dL (0.40-1.00); Globulin, Blood 3.5 g/dL (2.2-4.0); Potassium, Blood 4.3 mmol/L (3.5-5.5); Total Protein, Blood 7.4 g/dL (6.4-8.2)
[2023-11-07] MEDS ORDERED: Lactated Ringer's 1,000 ML IV SCH (15:35)
[2023-11-07] MEDS ORDERED: Ondansetron HCl 2 MG / ML 2ML Vial IV ONE (15:40)
[2023-11-07] MEDS ORDERED: HyDROXyzine HCl 25 MG Tab PO ONE (15:40)
[2023-11-07] MEDS ORDERED: Lactated Ringer's 1,000 ML IV ONE (15:50)
[2023-11-07 15:58] LABS: Source, Urine Clean Catch
[2023-11-07 16:06] LABS: Bilirubin, Urine Neg (Neg); Blood, Urine Neg (Neg); Color, Urine Yellow (P-Yellow); Glucose Qualitative, Urine Neg (Neg); Ketones, Urine 4+ (Neg); Leukocyte Esterase, Urine Neg (Neg); Nitrite, Urine Neg (Neg); Protein, Urine 1+ (Neg); Specific Gravity, Urine 1.015 (1.003-1.022); Urobilinogen, Urine NORM (Normal)
[2023-11-07 16:16] LABS: Appearance, Urine Hazy (Clear); Mucus Mod (0-Heavy); Red Blood Cells, Urine Not Seen /hpf (0-2); Squamous Epithelial Cells Few /hpf (Few); White Blood Cells, Urine 0-2 /hpf (0-5)
[2023-11-07 16:17] LABS: Bacteria Few /hpf
[2023-11-07 17:15] VITALS: BP 114/76
[2023-11-07] MEDS ORDERED: ONDA4ODT MM (17:17)
== END 2023-11-07 17:25 | disposition home or self-care (01) ==
LOC: ER 11:28
PROVIDERS: Physician Assistant
DX: A08.4 Viral intestinal infection, unspecified (principal); K21.9 Gastro-esophageal reflux disease without esophagitis; Z88.0 Allergy status to penicillin; Z88.2 Allergy status to sulfonamides; Z79.899 Other long term (current) drug therapy
CPT/HCPCS: 80053; 81001; 81025; 83690; 85025; 96361; 96374; 99284-25; A9270; J2405; J7120

== ENCOUNTER → 2024-10-04 | Outpatient (CLI) | payer OTHER ==
[2024-10-15 14:53] LABS: HPVG SOURCE Cervical
== END ==
LOC: LAB 17:15 → LAB SHORT 17:15
PROVIDERS: Advanced Practice Midwife
DX: Z98.890 Other specified postprocedural states (principal)
CPT/HCPCS: 87624; 87625; 88142

== ENCOUNTER → 2024-10-19 | Outpatient (CLI) | payer OTHER | LOC: LAB SHORT 07:46 → LAB 07:46 | DX: R87.610 Atypical squamous cells of undetermined significance on cytologic smear of cervix (ASC-US) (principal); R87.810 Cervical high risk human papillomavirus (HPV) DNA test positive | CPT/HCPCS: 88305 ==

== ENCOUNTER 2025-01-25 17:59 | Emergency (ER) | payer OTHER ==
[~2025-01-25] VITALS: Ht 167.6 cm; Wt 74.8 kg
[2025-01-25 18:43] LABS: BASOPHILS ABSOLUTE AUTO 0.06 K/mm3 (0.00-0.23); BASOPHILS PERCENT AUTO 1 % (0-2); EOSINOPHILS ABSOLUTE AUTO 0.23 K/mm3 (0.00-0.68); EOSINOPHILS PERCENT AUTO 3 % (0-6); Hematocrit 44.6 % (33.0-51.0); Hemoglobin 14.6 g/dL (11.5-16.0); IMMATURE GRAN ABSOLUTE AUTO 0.02 K/mm3 (0.00-0.10); IMMATURE GRAN PERCENT AUTO 0 % (0-1); LYMPHOCYTES ABSOLUTE AUTO 2.28 K/mm3 (0.84-5.20); LYMPHOCYTES PERCENT AUTO 32 % (21-46); MONOCYTES ABSOLUTE AUTO 0.45 K/mm3 (0.16-1.47); MONOCYTES PERCENT AUTO 6 % (4-13); Mean Corpuscular HGB Conc 32.7 g/dL (31.5-36.5); Mean Corpuscular Volume 85 fL (80-100); NEUTROPHILS ABSOLUTE AUTO 4.11 K/mm3 (1.96-9.15); NEUTROPHILS PERCENT AUTO 58 % (41-73); NRBC ABSOLUTE 0.00 K/mm3 (0.00-0.02); NRBC Auto 0.0 /100 WBC (0.0-0.2); Platelet Count 287 K/mm3 (150-400); RDW Coefficient Variation 12.0 % (11.7-14.2); RDW Standard Deviation 36.9 fL (35.1-46.3)
[2025-01-25 19:19] LABS: Alanine Aminotransfer (ALT/SGP 20.0 U/L (12-78); Albumin, Blood 4.2 g/dL (3.4-5.0); Albumin/Globulin Ratio 1.2 (0.8-1.8); Anion Gap 9.0 mmol/L (3-11); Aspartate Aminotrans (AST/SGOT 14.0 U/L (12-37); Bilirubin, Total 0.3 mg/dL (0.1-1.0); Blood Urea Nitrogen 14.0 mg/dL (8-24); CO2, Blood 23.0 mmol/L (21-32); Calcium, Blood 9.5 mg/dL (8.5-10.1); Chloride, Blood 111.0 mmol/L (98-108); Creatinine, Blood 0.75 mg/dL (0.40-1.00); Globulin, Blood 3.4 g/dL (2.2-4.0); Glucose, Blood 95.0 mg/dL (70-99); Potassium, Blood 3.8 mmol/L (3.5-5.5); Sodium, Blood 139.0 mmol/L (136-145); Total Protein, Blood 7.6 g/dL (6.4-8.2)
[2025-01-25 21:10] LABS: Source, Urine Clean Catch
[2025-01-25 21:13] LABS: Bilirubin, Urine Neg (Neg); Color, Urine Yellow (P-Yellow); Glucose Qualitative, Urine Neg (Neg); Ketones, Urine 2+ (Neg); Leukocyte Esterase, Urine 1+ (Neg); Protein, Urine 1+ (Neg); Specific Gravity, Urine 1.025 (1.003-1.022); Urobilinogen, Urine NORM (Normal)
[2025-01-25 21:22] VITALS: BP 124/90
== END 2025-01-25 22:21 | disposition home or self-care (01) ==
LOC: ER 17:59
PROVIDERS: Student in an Organized Health Care Education/Training Program
DX: R06.02 Shortness of breath (principal); Z88.2 Allergy status to sulfonamides; Z88.0 Allergy status to penicillin; Z79.899 Other long term (current) drug therapy; J45.909 Unspecified asthma, uncomplicated
CPT/HCPCS: 71046; 80053; 81001; 85025; 87086; 93005; 93010; 99284-25

== ENCOUNTER → 2025-01-27 | Outpatient (CLI) | payer OTHER | LOC: LAB 17:10 → LAB SHORT 17:10 | DX: E86.0 Dehydration (principal) | CPT/HCPCS: 87086 ==

== ENCOUNTER → 2025-01-27 | Outpatient (CLI) | payer OTHER ==
[2025-01-27 16:19] LABS: BASOPHILS ABSOLUTE AUTO 0.09 K/mm3 (0.00-0.23); BASOPHILS PERCENT AUTO 1 % (0-2); EOSINOPHILS ABSOLUTE AUTO 0.57 K/mm3 (0.00-0.68); EOSINOPHILS PERCENT AUTO 8 % (0-6); Hematocrit 47.0 % (33.0-51.0); Hemoglobin 15.5 g/dL (11.5-16.0); IMMATURE GRAN ABSOLUTE AUTO 0.02 K/mm3 (0.00-0.10); IMMATURE GRAN PERCENT AUTO 0 % (0-1); LYMPHOCYTES ABSOLUTE AUTO 1.92 K/mm3 (0.84-5.20); LYMPHOCYTES PERCENT AUTO 26 % (21-46); MONOCYTES ABSOLUTE AUTO 0.44 K/mm3 (0.16-1.47); MONOCYTES PERCENT AUTO 6 % (4-13); Mean Corpuscular HGB Conc 33.0 g/dL (31.5-36.5); Mean Corpuscular Volume 87 fL (80-100); NEUTROPHILS ABSOLUTE AUTO 4.42 K/mm3 (1.96-9.15); NEUTROPHILS PERCENT AUTO 59 % (41-73); NRBC ABSOLUTE 0.00 K/mm3 (0.00-0.02); NRBC Auto 0.0 /100 WBC (0.0-0.2); Platelet Count 304 K/mm3 (150-400); RDW Coefficient Variation 12.2 % (11.7-14.2); RDW Standard Deviation 38.3 fL (35.1-46.3)
[2025-01-27 16:29] LABS: Alanine Aminotransfer (ALT/SGP 19.0 U/L (12-78); Albumin, Blood 4.0 g/dL (3.4-5.0); Albumin/Globulin Ratio 1.0 (0.8-1.8); Anion Gap 14.0 mmol/L (3-11); Aspartate Aminotrans (AST/SGOT 18.0 U/L (12-37); Bilirubin, Total 0.4 mg/dL (0.1-1.0); Blood Urea Nitrogen 9.0 mg/dL (8-24); CO2, Blood 24.0 mmol/L (21-32); Calcium, Blood 9.0 mg/dL (8.5-10.1); Chloride, Blood 104.0 mmol/L (98-108); Creatinine, Blood 0.94 mg/dL (0.40-1.00); Globulin, Blood 3.9 g/dL (2.2-4.0); Glucose, Blood 101.0 mg/dL (70-99); Potassium, Blood 4.0 mmol/L (3.5-5.5); Sodium, Blood 138.0 mmol/L (136-145); Total Protein, Blood 7.9 g/dL (6.4-8.2)
== END ==
LOC: LAB 16:15 → LAB SHORT 16:15
PROVIDERS: Chiropractor
DX: E86.0 Dehydration (principal)
CPT/HCPCS: 80053; 83690; 85025